=== PATIENT | female | born 2000 | race Caucasian/White ===

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

== ENCOUNTER 2018-03-12 16:35 | Outpatient (CLI) | END 2018-03-12 16:36 | disposition home or self-care (01) | LOC: CAR 16:35 | PROVIDERS: ATTEND Nurse Practitioner Family | DX: R07.89 Other chest pain (principal); K30 Functional dyspepsia | CPT/HCPCS: 93005; 93010 ==

== ENCOUNTER 2018-08-22 14:08 | Outpatient (CLI) ==
--- NOTE | 2018-08-22 14:43 | DI ---
EXAM: Four views of the left knee. History: Left knee pain. Findings: No acute fracture or dislocation. No abnormal calcifications or radiopaque foreign bodies . Joint spaces are preserved. Impression: Unremarkable exam
--- NOTE | 2018-08-22 14:49 | DI ---
EXAM: Three views of the sacrum and coccyx. History: Lower back pain. Findings: No acute fracture or dislocation. No abnormal calcifications or radiopaque foreign bodies . Bilateral L5 pars defects with no spondylolisthesis. Mild to moderate disc space narrowing at L5- S1. Bilateral sacroiliac joints are intact. Bilateral hip joints are intact. Impression: 1. No acute osseous abnormality. 2. Bilateral L5 pars defects with no spondylolisthesis. 3. Mild to moderate degenerative disc disease at L5-S1.
== END 2018-08-22 14:09 | disposition home or self-care (01) ==
LOC: RAD 14:08
PROVIDERS: ATTEND Nurse Practitioner Family
DX: M25.562 Pain in left knee (principal); M54.5 Low back pain; G89.29 Other chronic pain; M40.209 Unspecified kyphosis, site unspecified

== ENCOUNTER 2018-08-30 08:20 | Outpatient (CLI) ==
--- NOTE | 2018-08-31 00:06 | MRI ---
MRI of the lumbar spine HISTORY: Dorsalgia. COMPARISON: None of this type. PROCEDURE: Multiplanar, multisequence MRI protocol including sagittal T1-weighted, sagittal T2-weigh jaycob, sagittal inversion recovery, coronal T2-weighted, axial T1-weighted and axial T2-weighted sequen lennox. FINDINGS: There are five non-rib bearing lumbar vertebrae. Vertebral alignment demonstrates normal l ordosis. Vertebral body height is well maintained. Marrow signal is within normal limits for age. The intervertebral discs appear normal in height and signal generally with modest reduction in height at L5 -S1. The conus medullaris appears normal in position and configuration and signal. The calib er of the spinal canal is intrinsically within normal limits. The prevertebral and paraspinous soft tissues appear to be within normal limits. Segmental analysis: T12-L1: There is no significant disc bulge at this level. The spinal canal is not significantly narr owed. The subarticular spaces and lateral recesses are not significantly narrowed. The neural von марина are not stenosed. The conus crosses this level. L1-L2: There is no significant disc bulge at this level. The spinal canal is not significantly narro wed. The subarticular spaces and lateral recesses are not significantly narrowed. The neural forami na are not stenosed. The conus terminates just below this level. L2-L3: There is a minimal disc bulge at this level. The spinal canal is not significantly narrowed. The subarticular spaces and lateral recesses are not significantly narrowed. The neural foramina ar e not stenosed. L3-L4: There is a minimal disc bulge at this level. The spinal canal is not significantly narrowed. The subarticular spaces and lateral recesses are not significantly narrowed. The neural foramina ar e not stenosed. L4-L5: There is a minimal disc bulge at this level. The spinal canal is not significantly narrowed. The subarticular spaces and lateral recesses are not significantly narrowed. The neural foramina ar e not stenosed. L5-S1: There is a minimal disc bulge at this level. The spinal canal is not significantly narrowed. The subarticular spaces and lateral recesses are not significantly narrowed. The neural foramina ar e not stenosed. IMPRESSION: 1. The MRI examination demonstrates straightening of normal lordosis. 2. The vertebral bodies are normal in height, alignment and signal for age. The intervertebral disc s are normal in height and signal generally with modest reduction in height at L5-S1. 3. The central canal is normally patent at all levels. 4. There is no significant foraminal stenosis at any of the reviewed levels.
== END 2018-08-30 08:21 | disposition home or self-care (01) ==
LOC: RAD 08:20
PROVIDERS: ATTEND Nurse Practitioner Family
DX: M54.9 Dorsalgia, unspecified (principal); G89.29 Other chronic pain; M51.36 Other intervertebral disc degeneration, lumbar region; M43.06 Spondylolysis, lumbar region